=== PATIENT | male | born 1940 | race Caucasian/White ===

== ENCOUNTER 2017-05-09 10:01 | Day surgery (SDC) | payer OTHER ==
[2017-05-09] MEDS ORDERED: BUPIVACAINE 0.5% 30 ML SDV ONE (11:37)
[2017-05-09] MEDS ORDERED: LIDOCAINE 1% 300 MG/30 ML SDV ONE (11:37)
[2017-05-09] MEDS ORDERED: LIDO/EPI 1% **for epidural** 30 ML SDV ONE (11:37)
[2017-05-09] MEDS ORDERED: fentaNYL 100 MCG/2 ML INJ ONE (11:39)
[2017-05-09] MEDS ORDERED: MIDAZOLAM 2 MG/2 ML VIAL ONE (11:39)
--- NOTE | 2017-05-09 11:48 | PDHPUP ---
History & Physical Update H&P update statement: This history and physical update is based on an assessment of the patient which was completed after admission or registration (within 24 hours), but prior to the surgery/procedure. H&P update: H&P reviewed & patient examined, no change in patient's condition since H&P completed
--- NOTE | 2017-05-09 11:53 | PDPROPOC ---
Sedation Plan of Care Sedation Plan of Care: vital signs stable, mental status noted, patient educated of risks, benefits, alternatives, patient can tolerate sedation ASA Classification: ASA 2 Planned drugs: fentanyl, midazolam Mallampati Score: Class 1 Mallampati Reference Image: Patient passed 3-3-2 rule?: Yes
--- NOTE | 2017-05-09 13:42 | GPN ---
[f rep st] PROCEDURE NOTE DATE OF PROCEDURE: 05/09/2017 PROCEDURE PERFORMED: [employer] implantable loop recorder removal. INDICATION FOR PROCEDURE: End of battery life of implantable loop recorder. PROCEDURE IN DETAIL: After informed consent was obtained, the patient was brought to the cardiac cat heterization lab where he was prepped and draped in a sterile fashion. He opted for no sedation. 1% lidocaine was used to anesthetized the site of the loop recorder. Incision was made with a 5-blade scalpel. Incision was enhanced with Bovie cautery. The device was removed just with simple pressure and removed without complication. Hemostasis was achieved. Sterile dressing was applied. Patient tolerated the procedure well. There were no postoperative complications. He did receive 3 matt. PLAN: 1. The patient will be discharged home. 2. Patient will return to the office in 1 week for wound check and staple removal. /[id number]/MODL
== END 2017-05-09 13:49 | disposition home or self-care (01) ==
LOC: FCATH 10:01
PROVIDERS: ATTEND Internal Medicine Cardiovascular Disease
PROC: 0JPT02Z Removal of Monitoring Device from Trunk Subcutaneous Tissue and Fascia, Open Approach (ICD-10-PCS; principal; 2017-05-09)
DX: Z45.09 Encounter for adjustment and management of other cardiac device (principal); I25.10 Atherosclerotic heart disease of native coronary artery without angina pectoris; I25.5 Ischemic cardiomyopathy; I10 Essential (primary) hypertension; E78.4 Other hyperlipidemia; Z86.73 Personal history of transient ischemic attack (TIA), and cerebral infarction without residual deficits; Z95.1 Presence of aortocoronary bypass graft
CPT/HCPCS: J2250; J3010